=== PATIENT | male | born 1985 | race Caucasian/White ===

== ENCOUNTER 2016-06-04 04:36 | Emergency (ER) | payer OTHER ==
[2016-06-04 05:22] VITALS: BMI 53.8
[2016-06-04] MEDS ORDERED: SODIUM CHLORIDE 0.9% 500 ML INFUS.BAG IV ONE (05:32)
[2016-06-04] MEDS ORDERED: morphine CARPU-JECT 4 MG/1 ML DISP.SYRIN IVPUSH ONE ×2 (06:06→11:49)
[2016-06-04] MEDS ORDERED: morphine CARPU-JECT 4 MG/1 ML DISP.SYRIN ONE (06:08)
[2016-06-04 06:13] LABS: BASOPHIL 1.1 % (0-2.0); EOSINOPHIL 1.3 % (0-4.5); MCH 26.1 pg (25.7-33.7); MCHC 32.7 g/dl (32.0-35.9); MEAN CELL VOLUME 79.9 fl (80-96); PLATELET COUNT 276 K/MM3 (134-434); RDW 13.9 % (11.9-15.9); WHITE BLOOD COUNT 12.5 K/mm3 (4.0-10.0)
--- NOTE | 2016-06-04 06:33 | PDOC ---
History of Present Illness - General Chief Complaint: Pain Stated Complaint: ABD PAIN, DIARRHEA History Source: Patient Exam Limitations: No Limitations - History of Present Illness Initial Comments: 06/04/16 05:33 Patient is a 31 year old male with right leg fx with pinning c/o epigastric pain and diarrhea since 8pm last night. States he went to a [employer] and has finger food and started to feel sick. States has been having epigastric pain which is 8/10, sharp, crampy assoc with diarrhea, no nausea, no vomiting, no fever, no chills, no sob. The is no blood in the diarrhea. States he has had similar episode in the past after eating clams, was admitted to the hosp. PMD: Dr. Harrison PMHX: as above PSocHX: occ etoh, cig 2/day, neg drug FamHx: non contributory GENERAL/CONSTITUTIONAL: [No fever or chills. No weakness. No weight change.] HEAD, EYES, EARS, NOSE AND THROAT: [No change in vision. No ear pain or discharge. No sore throat.] CARDIOVASCULAR: [No chest pain or shortness of breath.] RESPIRATORY: [No cough, wheezing, or hemoptysis.] GASTROINTESTINAL: (+) nausea, vomiting, diarrhea or constipation. No rectal bleeding.] GENITOURINARY: [No dysuria, frequency, or change in urination.] MUSCULOSKELETAL: [No joint or muscle swelling or pain. No neck or back pain.] SKIN AND BREASTS: [No rash or easy bruising.] NEUROLOGIC: [No headache, vertigo, loss of consciousness, or loss of sensation.] PSYCHIATRIC: [No depression or anxiety.] ENDOCRINE: [No increased thirst. No abnormal weight change.] HEMATOLOGIC/LYMPHATIC: [No anemia, easy bleeding, or history of blood clots.] ALLERGIC/IMMUNOLOGIC: [No hives or skin allergy. No latex allergy.] GENERAL: [The patient is awake, alert, and fully oriented, in mild distress.] HEAD: [Normal with no signs of trauma.] EYES: [Pupils equal, round and reactive to light, extraocular movements intact, sclera anicteric, conjunctiva clear.] ENT: [Ears normal, nares patent, oropharynx clear without exudates. Moist mucous membranes.] NECK: [Normal range of motion, supple without lymphadenopathy, JVD, or masses.] LUNGS: [Breath sounds equal, clear to auscultation bilaterally. No wheezes, and no crackles.] HEART: [Regular rate and rhythm, normal S1 and S2 without murmur, rub.] ABDOMEN: [Soft, (+) tendness epigastrum and RLQ, normoactive bowel sounds. No guarding, no rebound. No masses.] EXTREMITIES: [Normal range of motion, no edema. No clubbing or cyanosis. No cords, erythema, or tenderness.] NEUROLOGICAL: [Cranial nerves II through XII grossly intact. Normal speech, normal gait.] PSYCH: [Normal mood, normal affect.] SKIN: [Warm, Dry, normal turgor, no rashes or lesions noted.] Past History - Past Medical History Allergies/Adverse Reactions: Allergies Allergy/AdvReac Type Severity Reaction Status Date / Time No Known Allergies Allergy Verified 06/04/16 05:11 Home Medications: Ambulatory Orders Oxycodone HCl/Acetaminophen [Percocet 5-325 mg Tablet] 1 tab PO Q4H #20 tablet MDD 4 06/04/16 Other medical history: Deneis - Immunization History Immunization Up to Date: No - Psycho/Social/Smoking Cessation Hx Anxiety: No Suicidal Ideation: No Smoking History: Current every day smoker Have you smoked in the past 12 months: No Number of Cigarettes Smoked Daily: 2 Information on smoking cessation initiated: No Hx Alcohol Use: Yes Drug/Substance Use Hx: No Substance Use Type: Alcohol *Physical Exam - Vital Signs Last Vital Signs Temp Pulse Resp BP Pulse Ox 99.4 F 92 H 19 100/68 100 06/04/16 05:08 06/04/16 05:08 06/04/16 05:08 06/04/16 05:08 06/04/16 05:08 ED Treatment Course - LABORATORY CBC & Chemistry Diagram: 06/04/16 06:00 06/04/16 06:00 - RADIOLOGY Radiology Studies Ordered: Category Date Time Status ABDOMEN & PELVIS CT WITH CONTR [CT] Stat CT Scan 06/04/16 05:31 Ordered Medical Decision Making - Medical Decision Making 06/04/16 05:33 Patient is a 31 year old male with right leg fx with pinning c/o epigastric pain and diarrhea since 8pm last night but on exam tenderness in the RLQ. DDx include but not limted to collitis, appendicitis, labs, ct abd pelvis, offered pain meds but declines currently. 0700 Endorsed to the day team pending labs and ct abd/pelvis. *DC/Admit/Observation/Transfer Diagnosis at time of Disposition: Abdominal pain Qualifiers: Abdominal location: right lower quadrant Qualified Code(s): R10.31 - Right lower quadrant pain - Discharge Dispostion Disposition: HOME Condition at time of disposition: Stable - Prescriptions Prescriptions: Oxycodone HCl/Acetaminophen [Percocet 5-325 mg Tablet] 1 tab PO Q4H #20 tablet MDD 4 - Referrals Referrals: Marilou Harrison MD [Primary Care Provider] - - Patient Instructions Printed Discharge Instructions: DI for Abdominal Pain-Adult Additional Instructions: Maintain adequate hydration, for the remainder of your symptoms, maintain a bland diet such as bananas, rice, applesauce and toast. These foods can help make your stools firmer and also replete certainly essential electrolytes. Please follow up with your primary care physician as needed - Post Discharge Activity Work/School Note: Back to Work
[2016-06-04 06:58] LABS: ALBUMIN 3.8 g/dl (3.4-5.0); ALK PHOS 120 U/L (45-117); ANION GAP 9 (8-16); BILIRUBIN,TOTAL 0.8 mg/dL (0.2-1.0); CALCIUM 9.2 mg/dL (8.5-10.1); CO2 22 mmol/L (21-32); CREATININE 0.8 mg/dL (0.7-1.3); GLUCOSE,RANDOM 107 mg/dL (74-106); SGOT/AST 26 U/L (15-37); SGPT/ALT 58 U/L (12-78); TOT PROT 7.5 g/dl (6.4-8.2)
[2016-06-04] MEDS ORDERED: FAMOTIDINE 20 MG/50 ML IVPB 50 ML IVPB ONE ×2 (10:50→11:00)
[2016-06-04] MEDS ORDERED: MAG HYDROX/AL HYDROX/SIMETH 355 ML ORAL.SUSP PO ONE (10:50)
--- NOTE | 2016-06-04 10:54 | PDOC ---
*Physical Exam - Vital Signs Last Vital Signs Temp Pulse Resp BP Pulse Ox 99.4 F 92 H 19 100/68 100 06/04/16 05:08 06/04/16 05:08 06/04/16 05:08 06/04/16 05:08 06/04/16 05:08 - Physical Exam General Appearance: Yes: Appropriately Dressed. No: Apparent Distress HEENT: positive: Normal Voice Neck: positive: Supple Respiratory/Chest: negative: Respiratory Distress Cardiovascular: positive: Regular Rate, S1, S2 Gastrointestinal/Abdominal: positive: Tender (to upper abd), Soft Musculoskeletal: negative: CVA Tenderness Integumentary: positive: Dry, Warm Neurologic: positive: Fully Oriented, Alert, Normal Mood/Affect ED Treatment Course - LABORATORY CBC & Chemistry Diagram: 06/04/16 06:00 06/04/16 06:00 - ADDITIONAL ORDERS Additional order review: Laboratory Results 06/04/16 06:00 Sodium 138 Potassium 4.2 Chloride 107 Carbon Dioxide 22 Anion Gap 9 BUN 13 Creatinine 0.8 Creat Clearance w eGFR > 60 Random Glucose 107 H Calcium 9.2 Total Bilirubin 0.8 AST 26 ALT 58 Alkaline Phosphatase 120 H Total Protein 7.5 Albumin 3.8 Lipase 76 06/04/16 06:00 RBC 5.51 MCV 79.9 L MCHC 32.7 RDW 13.9 MPV 8.0 Neutrophils % 83.0 H Lymphocytes % 8.5 Monocytes % 6.1 Eosinophils % 1.3 Basophils % 1.1 - Medications Given in the ED: ED Medications Discontinued Medications Generic Name Dose Route Start Last Admin Trade Name Freq PRN Reason Stop Dose Admin Morphine Sulfate 4 mg 06/04/16 06:06 06/04/16 06:07 Morphine Injection - IVPUSH 06/04/16 06:07 4 mg ONCE ONE Administration Sodium Chloride 1,000 ml 06/04/16 05:32 06/04/16 06:01 Normal Saline - IV 06/04/16 05:33 1,000 ml ONCE ONE Administration Medical Decision Making - Medical Decision Making 06/04/16 10:52 Received S.O from night team Patient is a 31-year-old male who presented with epigastric pain with diarrhea shortly after attending a [employer] party last night. Was found to have tenderness to epigastrium and right lower quadrant. White count 12, rest of labs unremarkable. CT recently read and was negative for appendicitis or any other acute pathology. Patient currently continues to complain of upper abdominal pain at this point. Will give Pepcid and Maalox and reassess 06/04/16 11:50 On reassessment, pt continues to c/o pain, mostly located to RUQ. States he was admitted for similar symptoms at [facility] last year and states he was dx with " a stomach virus". Patient denies any diarrhea, nausea, vomiting, fever or chills at this time. Will continue to control pain and get ultrasound at this point to rule out gavi 06/04/16 15:21 US negative for gallstones or acute pathology. Pt states pain is now 6-7/10. Will attempt further pain control and reassess 06/04/16 16:33 Pt reports feeling sig better w/ percocet and able to tari po. Will dc w/ pain meds and PMD f/u. Reasons to return d/w pt 06/04/16 16:36 06/04/16 16:37 *DC/Admit/Observation/Transfer Diagnosis at time of Disposition: Abdominal pain Qualifiers: Abdominal location: right lower quadrant Qualified Code(s): R10.31 - Right lower quadrant pain - Discharge Dispostion Disposition: HOME Condition at time of disposition: Stable - Prescriptions Prescriptions: Oxycodone HCl/Acetaminophen [Percocet 5-325 mg Tablet] 1 tab PO Q4H #20 tablet MDD 4 - Referrals Referrals: Marilou Harrison MD [Primary Care Provider] - - Patient Instructions Printed Discharge Instructions: DI for Abdominal Pain-Adult Additional Instructions: Maintain adequate hydration, for the remainder of your symptoms, maintain a bland diet such as bananas, rice, applesauce and toast. These foods can help make your stools firmer and also replete certainly essential electrolytes. Please follow up with your primary care physician as needed - Post Discharge Activity Work/School Note: Back to Work
[2016-06-04 10:55] VITALS: TEMP 98.4
[2016-06-04] MEDS ORDERED: MAG HYDROX/AL HYDROX/SIMETH 30 ML UNIT-DOSE CUP ONE (11:00)
[2016-06-04] MEDS ORDERED: HYDROmorphone HCL CARPU-JECT 2 MG/1 ML DISP.SYRIN IVPB ONE (11:49)
[2016-06-04] MEDS ORDERED: HYDROmorphone HCL CARPU-JECT 1 MG/1 ML DISP.SYRIN ONE (12:22)
[2016-06-04] MEDS ORDERED: OXYCODONE/APAP 5/325MG COMBO TABLET PO ONE (15:21)
[2016-06-04] MEDS ORDERED: OXYCODONE/APAP 5/325MG COMBO TABLET ONE (15:37)
[2016-06-04 17:03] VITALS: BP 110/75; PULSE 70
== END 2016-06-04 17:04 | disposition home or self-care (01) ==
LOC: JER 04:36
DX: R10.31 Right lower quadrant pain (principal); F17.210 Nicotine dependence, cigarettes, uncomplicated
CPT/HCPCS: 36415; 74177-TC; 76705-TC; 80053; 83690; 85025; 99284-25

== ENCOUNTER 2021-09-21 15:23 | Inpatient (IN) | payer OTHER ==
[2021-09-21] MEDS ORDERED: DICYCLOMINE HCL 10 MG CAPSULE PO PRN (16:57)
[2021-09-21] MEDS ORDERED: MELATONIN 5 MG TABLETS PO PRN (16:57)
[2021-09-21] MEDS ORDERED: ACETAMINOPHEN 325 MG TABLET (FP) PO PRN ×2 (16:57)
[2021-09-21] MEDS ORDERED: IBUPROFEN 400 MG TABLET (FP) PO PRN (16:57)
[2021-09-21] MEDS ORDERED: LOPERAMIDE HCL 2 MG CAPSULE PO PRN (16:57)
[2021-09-21] MEDS ORDERED: MAGNESIUM CITRATE 300 ML BOTTLE PO PRN (16:57)
[2021-09-21] MEDS ORDERED: ONDANSETRON *ODT* 4 MG TABLET SL PRN (16:57)
[2021-09-21] MEDS ORDERED: BENZOCAINE/MENTHOL (CHLORASEPTIC ) LOZENGE MM PRN (16:57)
[2021-09-21] MEDS ORDERED: MAG HYDROX/AL HYDROX/SIMETH 30 ML UNIT-DOSE CUP PO PRN (16:57)
[2021-09-21] MEDS ORDERED: BISMUTH SUBSALICYLATE 524 MG/30 ML PO PRN (16:57)
[2021-09-21] MEDS ORDERED: MAGNESIUM HYDROX 2400MG/30ML ORAL SUSPENSION 30 ML CUP PO PRN (16:57)
[2021-09-21 18:06] VITALS: BMI 31.8
[2021-09-21] MEDS: diazePAM 5 MG TABLET PO PRN (19:49)
[2021-09-21] MEDS: hydrOXYzine PAMOATE 25 MG CAPSULE (FP) PO PRN (19:50)
[2021-09-21] MEDS: THIAMINE HCL 100 MG TABLET (FP) PO SCH (22:31)
[2021-09-22 10:14] LABS: HEMATOCRIT 40.9 % (35.4-49); HEMOGLOBIN 13.4 GM/dL (11.7-16.9); MCHC 32.8 g/dl (32.0-35.9); MEAN CELL VOLUME 82.2 fl (80-96); MEAN PLT VOLUME 8.3 fl (7.5-11.1); PLATELET COUNT 278 10^3/uL (134-434); RBC 4.97 M/mm3 (4.00-5.60); RDW 14.1 % (11.9-15.9); WHITE BLOOD COUNT 8.2 K/mm3 (4.0-10.0)
[2021-09-22] MEDS: PRENATAL VITAMINS W/ FOLIC ACID TABLET (FP) PO SCH (10:18)
[2021-09-22] MEDS: diazePAM 5 MG TABLET PO PRN (10:19)
[2021-09-22 10:33] LABS: BLOOD UREA NITROGEN 6.6 mg/dL (7-18); CALCIUM 9.1 mg/dL (8.5-10.1)
[2021-09-22 10:34] LABS: ALBUMIN 3.4 g/dl (3.4-5.0)
[2021-09-22 10:37] LABS: CREATININE 0.8 mg/dL (0.55-1.3)
[2021-09-22 10:38] LABS: BILIRUBIN,TOTAL 0.8 mg/dL (0.2-1); TOT PROT 6.7 g/dl (6.4-8.2)
[2021-09-22] MEDS: NICOTINE POLACRILEX 2 MG GUM BUC PRN ×2 (15:47→19:56)
[2021-09-22] MEDS: THIAMINE HCL 100 MG TABLET (FP) PO SCH (22:52)
[2021-09-23] MEDS: NICOTINE POLACRILEX 2 MG GUM BUC PRN ×2 (09:07→12:54)
[2021-09-23] MEDS: PRENATAL VITAMINS W/ FOLIC ACID TABLET (FP) PO SCH (09:45)
[2021-09-23] MEDS: METHOCARBAMOL 500 MG TABLET PO PRN ×2 (09:46→18:15)
[2021-09-23] MEDS: hydrOXYzine PAMOATE 25 MG CAPSULE (FP) PO PRN ×2 (09:46→18:15)
[2021-09-23] MEDS: THIAMINE HCL 100 MG TABLET (FP) PO SCH (22:58)
[2021-09-24 09:54] VITALS: BP 118/56; PULSE 74; TEMP 96.9
[2021-09-24] MEDS: PRENATAL VITAMINS W/ FOLIC ACID TABLET (FP) PO SCH (10:46)
== END 2021-09-24 12:20 | disposition other institution (70) | DRG 775 ==
LOC: YASAS 15:23 → Y6N 18:33
PROVIDERS: ADMIT Allergy & Immunology; ATTEND Surgery
PROC: HZ2ZZZZ Detoxification Services for Substance Abuse Treatment (ICD-10-PCS; principal; 2021-09-21)
DX: F10.230 Alcohol dependence with withdrawal, uncomplicated (principal); F17.210 Nicotine dependence, cigarettes, uncomplicated
CPT/HCPCS: 36415; 80053; 85027; 86780; C9803-CS; U0003; U0005

== ENCOUNTER 2021-09-24 12:35 | Inpatient (IN) | payer OTHER ==
[2021-09-24] MEDS ORDERED: MAGNESIUM CITRATE 300 ML BOTTLE PO PRN (13:27)
[2021-09-24] MEDS ORDERED: guaiFENesin 200 MG/10 ML 10 ML UNIT-DOSE CUPS PO PRN (13:27)
[2021-09-24] MEDS ORDERED: IBUPROFEN 400 MG TABLET (FP) PO PRN (13:27)
[2021-09-24] MEDS ORDERED: MAG HYDROX/AL HYDROX/SIMETH 30 ML UNIT-DOSE CUP PO PRN (13:27)
[2021-09-24] MEDS ORDERED: LOPERAMIDE HCL 2 MG CAPSULE PO PRN (13:27)
[2021-09-24] MEDS ORDERED: BENZOCAINE/MENTHOL (CHLORASEPTIC ) LOZENGE MM PRN (13:27)
[2021-09-24] MEDS ORDERED: hydrOXYzine PAMOATE 25 MG CAPSULE (FP) PO PRN (13:27)
[2021-09-24] MEDS ORDERED: NICOTINE POLACRILEX 2 MG GUM BUC PRN (13:27)
[2021-09-24] MEDS ORDERED: MAGNESIUM HYDROX 2400MG/30ML ORAL SUSPENSION 30 ML CUP PO PRN (13:27)
[2021-09-24] MEDS ORDERED: ACETAMINOPHEN 325 MG TABLET (FP) PO PRN (13:27)
[2021-09-24] MEDS ORDERED: P-EPHED 60MG/TRIPROLIDI 2.5MG TABLET PO PRN (13:27)
[2021-09-24] MEDS: NICOTINE 10 MG CARTRIDGE (INHALER) IH PRN (16:44)
[2021-09-24] MEDS: THIAMINE HCL 100 MG TABLET (FP) PO SCH (23:13)
[2021-09-24] MEDS: MELATONIN 5 MG TABLETS PO SCH (23:13)
[2021-09-25] MEDS: NICOTINE 10 MG CARTRIDGE (INHALER) IH PRN ×3 (06:50→18:21)
[2021-09-25] MEDS: PRENATAL VITAMINS W/ FOLIC ACID TABLET (FP) PO SCH (10:24)
[2021-09-25] MEDS: THIAMINE HCL 100 MG TABLET (FP) PO SCH (21:47)
[2021-09-25] MEDS: MELATONIN 5 MG TABLETS PO SCH (21:47)
[2021-09-26] MEDS: PRENATAL VITAMINS W/ FOLIC ACID TABLET (FP) PO SCH (10:15)
[2021-09-26] MEDS: NICOTINE 10 MG CARTRIDGE (INHALER) IH PRN ×3 (10:17→21:14)
[2021-09-26] MEDS: THIAMINE HCL 100 MG TABLET (FP) PO SCH (21:14)
[2021-09-26] MEDS: MELATONIN 5 MG TABLETS PO SCH (21:14)
[2021-09-27] MEDS: PRENATAL VITAMINS W/ FOLIC ACID TABLET (FP) PO SCH (09:54)
[2021-09-27] MEDS: NICOTINE 10 MG CARTRIDGE (INHALER) IH PRN ×3 (09:55→21:04)
[2021-09-27] MEDS: MELATONIN 5 MG TABLETS PO SCH (21:04)
[2021-09-27] MEDS: THIAMINE HCL 100 MG TABLET (FP) PO SCH (21:04)
[2021-09-28] MEDS: PRENATAL VITAMINS W/ FOLIC ACID TABLET (FP) PO SCH (10:32)
[2021-09-28] MEDS: NICOTINE 10 MG CARTRIDGE (INHALER) IH PRN ×2 (10:32→21:08)
[2021-09-28] MEDS: MELATONIN 5 MG TABLETS PO SCH (21:08)
[2021-09-28] MEDS: THIAMINE HCL 100 MG TABLET (FP) PO SCH (21:08)
[2021-09-29] MEDS: NICOTINE 10 MG CARTRIDGE (INHALER) IH PRN ×3 (09:32→20:22)
[2021-09-29] MEDS: PRENATAL VITAMINS W/ FOLIC ACID TABLET (FP) PO SCH (09:33)
[2021-09-29] MEDS: MELATONIN 5 MG TABLETS PO SCH (23:27)
[2021-09-29] MEDS: THIAMINE HCL 100 MG TABLET (FP) PO SCH (23:27)
[2021-09-30] MEDS: PRENATAL VITAMINS W/ FOLIC ACID TABLET (FP) PO SCH (10:12)
[2021-09-30] MEDS: NICOTINE 10 MG CARTRIDGE (INHALER) IH PRN ×3 (10:12→21:28)
[2021-09-30] MEDS: MELATONIN 5 MG TABLETS PO SCH (21:28)
[2021-09-30] MEDS: THIAMINE HCL 100 MG TABLET (FP) PO SCH (21:28)
[2021-10-01] MEDS: NICOTINE 10 MG CARTRIDGE (INHALER) IH PRN ×4 (06:35→21:11)
[2021-10-01] MEDS: PRENATAL VITAMINS W/ FOLIC ACID TABLET (FP) PO SCH (09:47)
[2021-10-01] MEDS: MELATONIN 5 MG TABLETS PO SCH (21:11)
[2021-10-01] MEDS: THIAMINE HCL 100 MG TABLET (FP) PO SCH (21:11)
[2021-10-02] MEDS: NICOTINE 10 MG CARTRIDGE (INHALER) IH PRN ×3 (09:01→21:17)
[2021-10-02] MEDS: PRENATAL VITAMINS W/ FOLIC ACID TABLET (FP) PO SCH (10:03)
[2021-10-02] MEDS: THIAMINE HCL 100 MG TABLET (FP) PO SCH (21:17)
[2021-10-02] MEDS: MELATONIN 5 MG TABLETS PO SCH (21:17)
[2021-10-03] MEDS: NICOTINE 10 MG CARTRIDGE (INHALER) IH PRN ×3 (08:59→21:09)
[2021-10-03] MEDS: PRENATAL VITAMINS W/ FOLIC ACID TABLET (FP) PO SCH (09:37)
[2021-10-03] MEDS: THIAMINE HCL 100 MG TABLET (FP) PO SCH (21:09)
[2021-10-03] MEDS: MELATONIN 5 MG TABLETS PO SCH (21:10)
[2021-10-04] MEDS: NICOTINE 10 MG CARTRIDGE (INHALER) IH PRN ×5 (07:57→21:08)
[2021-10-04] MEDS: PRENATAL VITAMINS W/ FOLIC ACID TABLET (FP) PO SCH (10:17)
[2021-10-04] MEDS: THIAMINE HCL 100 MG TABLET (FP) PO SCH (21:08)
[2021-10-04] MEDS: MELATONIN 5 MG TABLETS PO SCH (21:09)
[2021-10-05] MEDS: NICOTINE 10 MG CARTRIDGE (INHALER) IH PRN ×5 (06:00→21:04)
[2021-10-05] MEDS: PRENATAL VITAMINS W/ FOLIC ACID TABLET (FP) PO SCH (09:55)
[2021-10-05] MEDS: MELATONIN 5 MG TABLETS PO SCH (21:04)
[2021-10-05] MEDS: THIAMINE HCL 100 MG TABLET (FP) PO SCH (21:04)
[2021-10-06] MEDS: NICOTINE 10 MG CARTRIDGE (INHALER) IH PRN ×4 (06:03→21:09)
[2021-10-06] MEDS: PRENATAL VITAMINS W/ FOLIC ACID TABLET (FP) PO SCH (10:23)
[2021-10-06] MEDS: LIDOCAINE 5% TOPICAL PATCH TP SCH (15:20)
[2021-10-06] MEDS: LIDOCAINE PATCH REMOVAL MC SCH (21:09)
[2021-10-06] MEDS: THIAMINE HCL 100 MG TABLET (FP) PO SCH (21:09)
[2021-10-06] MEDS: MELATONIN 5 MG TABLETS PO SCH (21:09)
[2021-10-07] MEDS: NICOTINE 10 MG CARTRIDGE (INHALER) IH PRN ×4 (06:12→21:04)
[2021-10-07] MEDS: PRENATAL VITAMINS W/ FOLIC ACID TABLET (FP) PO SCH (09:46)
[2021-10-07] MEDS: LIDOCAINE 5% TOPICAL PATCH TP SCH (09:46)
[2021-10-07] MEDS: THIAMINE HCL 100 MG TABLET (FP) PO SCH (21:03)
[2021-10-07] MEDS: MELATONIN 5 MG TABLETS PO SCH (21:04)
[2021-10-07] MEDS: LIDOCAINE PATCH REMOVAL MC SCH (21:04)
[2021-10-08] MEDS: NICOTINE 10 MG CARTRIDGE (INHALER) IH PRN ×4 (05:55→21:08)
[2021-10-08] MEDS: PRENATAL VITAMINS W/ FOLIC ACID TABLET (FP) PO SCH (10:30)
[2021-10-08] MEDS: LIDOCAINE 5% TOPICAL PATCH TP SCH (10:30)
[2021-10-08] MEDS: THIAMINE HCL 100 MG TABLET (FP) PO SCH (21:06)
[2021-10-08] MEDS: LIDOCAINE PATCH REMOVAL MC SCH (21:06)
[2021-10-08] MEDS: MELATONIN 5 MG TABLETS PO SCH (21:07)
[2021-10-09] MEDS: NICOTINE 10 MG CARTRIDGE (INHALER) IH PRN (06:09)
[2021-10-09 07:18] VITALS: BP 120/71; PULSE 64; TEMP 97.8
[2021-10-09] MEDS: PRENATAL VITAMINS W/ FOLIC ACID TABLET (FP) PO SCH (10:00)
[2021-10-09] MEDS: LIDOCAINE 5% TOPICAL PATCH TP SCH (10:00)
== END 2021-10-09 10:02 | disposition home or self-care (01) | DRG 775 ==
LOC: YASAS 12:35 → Y3W 12:36
PROVIDERS: ADMIT Allergy & Immunology; ATTEND Psychiatry & Neurology Pain Medicine
DX: F10.20 Alcohol dependence, uncomplicated (principal)
CPT/HCPCS: 82962; C9803-CS; U0003; U0005